=== PATIENT | female | born 1995 | race Caucasian/White ===

== ENCOUNTER 2019-04-28 10:29 | Emergency (ER) | payer MEDICAID ==
[~2019-04-28] VITALS: Ht 167.6 cm; Wt 75.0 kg
[2019-04-28 10:50] VITALS: BP 123/79
== END 2019-04-28 11:51 | disposition home or self-care (01) ==
LOC: ER 10:29
DX: H66.91 Otitis media, unspecified, right ear (principal); H60.91 Unspecified otitis externa, right ear
CPT/HCPCS: 81025; 99283

== ENCOUNTER 2024-12-07 09:12 | Emergency (ER) | payer MEDICAID ==
[~2024-12-07] VITALS: Ht 167.6 cm; Wt 104.7 kg
[2024-12-07 09:17] VITALS: O2SAT 97
[2024-12-07 10:01] LABS: BASOPHILS % 0.6 % (0.0-2.0); EOSINOPHILS % 2.4 % (0.0-5.0); HEMATOCRIT. 40.9 % (36.0-48.0); HEMOGLOBIN. 13.6 g/dL (12.0-16.0); LYMPHOCYTES % 24.8 % (20.0-50.0); MEAN CORPUSCULAR HEMOGLOBIN 28.9 pg (28.0-32.0); MEAN CORPUSCULAR HGB CONC 33.4 g/dL (31.0-37.0); MEAN CORPUSCULAR VOLUME 86.4 fL (81.0-99.0); MEAN PLATELET VOLUME 7.9 fl (7.4-10.4); MONOCYTES % 6.6 % (2.0-8.0); NEUTROPHILS % 65.6 % (40.0-76.0); PLATELET 441 x1000/uL (130-400); RED BLOOD CELL COUNT 4.73 mill/uL (4.2-5.4); RED CELL DISTRIBUTION WIDTH 14.2 % (11.6-14.6); WHITE BLOOD COUNT 8.5 x1000/uL (4.5-11.0)
[2024-12-07] MEDS: SODIUM CHLORIDE 0.9% 500 ML IV ONE (10:06)
[2024-12-07 10:07] LABS: CLARITY URINE CLEAR (CLEAR); COLOR URINE YELLOW (YELLOW); GLUCOSE URINE NEGATIVE (NEGATIVE); KETONES URINE NEGATIVE (NEGATIVE); LEUKOCYTE ESTERASE URINE TRACE (NEGATIVE); NITRITE URINE POSITIVE (NEGATIVE); OCCULT BLOOD URINE 2+ (NEGATIVE); PH URINE 5.5 (4.5-8.0); PROTEIN URINE NEGATIVE (NEGATIVE); UROBILINOGEN URINE 0.2 E.U./dL (0.2-1.0)
[2024-12-07] MEDS: MORPHINE SULFATE 4 MG/ML INJ (FOR IV/IM USE) IV NR (10:07)
[2024-12-07 10:08] LABS: CHLORIDE 105 mEq/L (98-107); POTASSIUM 4.2 mEq/L (3.5-5.1); SODIUM 136 mEq/L (136-145)
[2024-12-07 10:09] LABS: CALCIUM 9.4 mg/dL (8.7-10.4); CARBON DIOXIDE 25 mEq/L (21-32)
[2024-12-07 10:14] LABS: CREATININE 0.7 mg/dL (0.6-1.0); GLUCOSE 112 mg/dL (70-105); UREA NITROGEN BLOOD 11 mg/dL (9-23)
[2024-12-07 10:16] LABS: ALANINE AMINOTRANSFERASE 190 IU/L (10-49); ALBUMIN 4.4 g/dL (3.2-4.8); ASPARTATE AMINOTRANSFERASE 40 IU/L (<34); BILIRUBIN DIRECT 0.3 mg/dL (<=3.0); BILIRUBIN TOTAL 0.8 mg/dL (0.1-1.0)
[2024-12-07 10:26] LABS: HCG SCREEN NEGATIVE
[2024-12-07 10:28] LABS: SQUAMOUS EPITHELIAL CELL URINE 2+ /lpf (RARE/1+)
[2024-12-07 10:30] LABS: BACTERIA URINE 3+; RBC URINE 0-2 /hpf (0-2)
[2024-12-07] MEDS ORDERED: SULF1TAB48 MT (11:47)
[2024-12-07 12:35] VITALS: BP 104/65; PULSE 86; RESP 16; TEMP 36.7; O2SAT 99
== END 2024-12-07 12:36 | disposition home or self-care (01) ==
LOC: ER 09:12
DX: N39.0 Urinary tract infection, site not specified (principal); K80.20 Calculus of gallbladder without cholecystitis without obstruction
CPT/HCPCS: 99285; 96374; 76705; 96361; 80076; 80048; 81003; 81025; 84703; 83690; 85025; 36415; J2270; J7040

== ENCOUNTER 2024-12-31 15:12 | Emergency (ER) | payer MEDICAID ==
[~2024-12-31] VITALS: Ht 167.6 cm; Wt 105.0 kg
[~2024-12-31 15:12] MED LIST: SULF1TAB48 MT
[2024-12-31 15:13] VITALS: O2SAT 100
[2024-12-31 15:18] VITALS: TEMP 36.7; O2SAT 97
[2024-12-31] MEDS: KETOROLAC 30MG/ML VIAL IV STA ×2 (15:58→19:11)
[2024-12-31] MEDS: ACETAMINOPHEN 325MG TABLET PO STA (15:58)
[2024-12-31 16:32] LABS: CLARITY URINE CLEAR (CLEAR); COLOR URINE YELLOW (YELLOW); GLUCOSE URINE NEGATIVE (NEGATIVE); KETONES URINE NEGATIVE (NEGATIVE); LEUKOCYTE ESTERASE URINE TRACE (NEGATIVE); NITRITE URINE POSITIVE (NEGATIVE); OCCULT BLOOD URINE NEGATIVE (NEGATIVE); PH URINE 5.5 (4.5-8.0); PROTEIN URINE NEGATIVE (NEGATIVE); SPECIFIC GRAVITY URINE 1.021 (1.005-1.030); UROBILINOGEN URINE 0.2 E.U./dL (0.2-1.0)
[2024-12-31 17:08] LABS: SQUAMOUS EPITHELIAL CELL URINE 1+ /lpf (RARE/1+)
[2024-12-31 17:09] LABS: BACTERIA URINE 3+; MUCUS URINE TRACE /lpf (< = 2+); RBC URINE NONE SEEN /hpf (0-2); WBC URINE 0-2 /hpf (0-2); YEAST URINE NONE SEEN
[2024-12-31 17:38] LABS: BASOPHILS % 0.5 % (0.0-2.0); EOSINOPHILS % 2.9 % (0.0-5.0); HEMATOCRIT. 39.9 % (36.0-48.0); HEMOGLOBIN. 13.4 g/dL (12.0-16.0); LYMPHOCYTES % 37.5 % (20.0-50.0); MEAN CORPUSCULAR HEMOGLOBIN 28.6 pg (28.0-32.0); MEAN CORPUSCULAR HGB CONC 33.5 g/dL (31.0-37.0); MEAN CORPUSCULAR VOLUME 85.4 fL (81.0-99.0); MEAN PLATELET VOLUME 7.8 fl (7.4-10.4); NEUTROPHILS % 51.1 % (40.0-76.0); PLATELET 358 x1000/uL (130-400); RED BLOOD CELL COUNT 4.68 mill/uL (4.2-5.4); RED CELL DISTRIBUTION WIDTH 14.4 % (11.6-14.6); WHITE BLOOD COUNT 9.7 x1000/uL (4.5-11.0)
[2024-12-31 17:46] LABS: CHLORIDE 105 mEq/L (98-107); POTASSIUM 4.3 mEq/L (3.5-5.1); SODIUM 138 mEq/L (136-145)
[2024-12-31 17:47] LABS: CALCIUM 9.4 mg/dL (8.7-10.4); CARBON DIOXIDE 23 mEq/L (21-32)
[2024-12-31 17:52] LABS: CREATININE 0.8 mg/dL (0.6-1.0); GLUCOSE 106 mg/dL (70-105); UREA NITROGEN BLOOD 10 mg/dL (9-23)
[2024-12-31 19:11] VITALS: BP 141/82; PULSE 84; RESP 20
[2024-12-31] MEDS ORDERED: IBUP-2030 MT (19:17)
[2024-12-31] MEDS ORDERED: TOPUD PO (19:17)
[2024-12-31] MEDS ORDERED: NITR100C MT (19:19)
== END 2024-12-31 19:34 | disposition home or self-care (01) ==
LOC: ER 15:12
DX: K80.20 Calculus of gallbladder without cholecystitis without obstruction (principal); N39.0 Urinary tract infection, site not specified
CPT/HCPCS: 80048; 81003; 83690; 85025; 36415; 76700; 96374; 96376; 99285; J1885; Z7610; 96375